=== PATIENT | male | born 1990 | race African-American/Black ===

== ENCOUNTER 2025-08-18 13:21 | Emergency (ER) | payer OTHER, SELFPAY ==
--- NOTE | 2025-08-18 | DI.CT.S_ITS ---
PROCEDURE: CT CHEST WO CON INDICATIONS: trauma TECHNIQUE: Noncontrast 5 mm thick sections acquired from the pulmonary apices to the posterior costophrenic angles. 1 mm lung window, 5 mm thick coronal and sagittal and 7 mm axial MIP reformats were then acquired. For radiation dose reduction, the following was used: automated exposure control, adjustment of mA and/or kV according to patient size. COMPARISON: None. FINDINGS: Image quality: Diagnostic. Lower Neck: No enlarged lymph nodes. Thyroid: No thyroid nodules which require sonographic follow up, per consensus guidelines. Axillae: No enlarged lymph nodes. Chest Wall: Moderate gynecomastia. Bones: Unremarkable. Lungs and Pleura: No pneumothorax or pleural effusions. No consolidation or suspicious nodules. Heart: Heart size is normal. No pericardial effusion. Thoracic Vessels: The aorta and pulmonary arteries demonstrate normal size. Mediastinum and Jessica: No enlarged lymph nodes. Esophagus: No wall thickening. Small hiatal hernia. Upper Abdomen: Visualized upper abdomen solid organs and bowel loops appear normal. IMPRESSION: No acute abnormality. Dictated by: Heath Simeon M.D. on 08/18/2025 at 14:38 Approved by: Heath Simeon M.D. on 08/18/2025 at 14:40
[2025-08-18 13:21] VITALS: BP 143/83; PULSE 62; RESP 11; TEMP 36.8; O2SAT 97; BMI 28.7
--- NOTE | 2025-08-18 13:33 | DI.CT.S_ITS ---
PROCEDURE: CT CERVICAL SPINE WO CON INDICATIONS: hit by metal juanis ACROSS LOWER BACK AND QUESTIONABLY NECK TECHNIQUE: Noncontrast 3 mm thick sections acquired from the skull base to the T4 level. Sagittal and coronal reformats were then constructed. For radiation dose reduction, the following was used: automated exposure control, adjustment of mA and/or kV according to patient size. COMPARISON: None. FINDINGS: Image quality: Excellent. Bones: No fractures or dislocations. Visualized superior ribs are intact. Soft tissues: Prevertebral soft tissues are normal in thickness. No paravertebral hematomas. No apical pneumothoraces. IMPRESSION: No displaced fracture or traumatic subluxation. Dictated by: Charli Prince M.D. on 08/18/2025 at 14:11 Approved by: Charli Prince M.D. on 08/18/2025 at 14:20
--- NOTE | 2025-08-18 13:36 | DI.CT.S_ITS ---
PROCEDURE: CT LUMBAR SPINE WO CON INDICATIONS: LOWER THORACOLUMBARPAIN AFTER HIT WITH ADRIAN. TECHNIQUE: Noncontrast 3 mm thick sections acquired from the T12 level to the sacrum. Sagittal and coronal reformats were constructed. For radiation dose reduction, the following was used: automated exposure control. COMPARISON: None. FINDINGS: Image quality: Excellent. Bones: There is normal bony alignment. No acute vertebral body compression fractures. No suspicious lytic or blastic bony lesions. No pars defects. Soft tissues: No retroperitoneal masses or hematomas. Visualized aorta is normal in caliber. IMPRESSION: No displaced fracture. Dictated by: Heath Simeon M.D. on 08/18/2025 at 14:36 Approved by: Heath Simeon M.D. on 08/18/2025 at 14:38
[2025-08-18 13:44] LABS: Add Manual Diff / Slide Review NO; Hematocrit 43.0 % (41-53); Hemoglobin 14.2 g/dL (13.5-17.5); Lymphocytes Absolute Auto 1600 /uL (1100-4500); Mean Corpuscular HGB Conc 33.1 % (30-36); Mean Corpuscular Hemoglobin 26.6 PG (26-34); Mean Corpuscular Volume 80.4 fL (80-100); Platelet Count 251 X10^3/uL (150-400)
[2025-08-18 13:49] LABS: Alanine Aminotransferase 59 IU/L (<50); Albumin 4.4 g/dL (3.5-5.0); Albumin Globulin Ratio 1.3 (1.0-2.8); Alkaline Phosphatase 103 U/L (38-126); Blood Urea Nitrogen 19 mg/dL (9-20); Calcium 8.8 mg/dL (8.4-10.2); Carbon Dioxide 26 mmol/L (22-32); Chloride 104 mmol/L (98-107); Estimated Glomerular Filt Rate > 60 mL/min (>60); Globulin 3.5 g/dL (1.7-4.1); Glucose 96 mg/dL (70-99); HEMOLYSIS < 15 (0-50); Lipase 81 U/L (23-300); Potassium 4.1 mmol/L (3.4-5.1); Sodium 138 mmol/L (137-145); Total Protein 7.9 g/dL (6.3-8.2)
--- NOTE | 2025-08-18 14:14 | PC.NURSE ---
Assumed care of patient
--- NOTE | 2025-08-18 14:17 | PC.NURSE ---
Pt on phone with mother. Pt's co-workers with him at bedside. Pt aox4. Pt on monitor. Denies needing anything at this time
[2025-08-18 14:30] VITALS: PULSE 76; RESP 22; O2SAT 97
[2025-08-18 14:31] VITALS: BP 134/79; PULSE 61; RESP 16; O2SAT 97
[2025-08-18 15:00] VITALS: PULSE 66; RESP 15; O2SAT 98
[2025-08-18 15:11] LABS: Troponin I < 0.012 ng/mL (0.01-0.034)
[2025-08-18 15:30] VITALS: PULSE 68; RESP 16; O2SAT 98
--- NOTE | 2025-08-18 21:39 | ED.BACK ---
HPI - Back Pain/Injury General Chief Complaint: Trauma Stated Complaint: injury from piece of metal from 10 feet above Time Seen by Provider: 08/18/25 13:33 Source: patient and EMS History of Present Illness HPI Narrative: This 34 yo male presents with moderately severe low back pain in lower thoracic /upper lumbar region after hit with metal juanis falling from 10 feet above on his back while he was in a sitting position. Did not hav e LOC and did not hit head but feels some questionable posterior neck discomfort although in rigid collar. denies any shortness of breath or pain on deep breath. Denies injury to extremities. Patient is a nonsmoker. Related Data Allergies Allergy/AdvReac Type Severity Reaction Status Date / Time No Known Drug Allergies Allergy Verified 08/18/25 13:35 Review of Systems Review of Systems ROS Unobtainable: All systems reviewed & are unremarkable except as noted in HPI and below Constitutional Comments: Malaise secondary to lower back pain in thoracolumbar region after hit with heavy metal juanis at work while sitting. Eyes Eyes: Reports system reviewed and no additional complaints, except as documented ENT Ears, Nose, Mouth, and Throat: Reports system reviewed and no additional complaints, except as documented Cardiovascular Cardiovascular: Reports system reviewed and no additional complaints, except as documented Respiratory Respiratory: Reports system reviewed and no additional complaints, except as documented Gastrointestinal Gastrointestinal: Reports system reviewed and no additional complaints, except as documented Genitourinary Genitourinary: Reports system reviewed and no additional complaints, except as documented Musculoskeletal Comments: Pain thoracolumbar region after hit with metal juanis at work while sitting. Some posterior neck pain too. No specific rib tenderness and no pain on deep breath. Neurologic Neurologic: Reports system reviewed and no additional complaints, except as documented Psychiatric Psychiatric: Reports system reviewed and no additional complaints, except as documented Patient History Smoking Status: Never smoker Exam Initial Vital Signs Initial Vital Signs: Vital Signs Temperature 98.3 F 08/18/25 13:21 Pulse Rate 62 08/18/25 13:21 Respiratory Rate 11 L 08/18/25 13:21 Blood Pressure 143/83 H 08/18/25 13:21 Pulse Oximetry 97 08/18/25 13:21 Oxygen Delivery Method Room Air 08/18/25 13:21 Const General: cooperative and healthy appearing Orientation: Orientation (oriented times 3 ) HENMT Head: normal to inspection and atraumatic Eyes General: Yes appearance normal, both eyes and all related structures Pupils: PERRL EOM: EOM intact bilaterally Neck Neck: normal visual inspection and full ROM (not tested before CT) Chest Chest: normal inspection of the chest Resp Effort & Inspection: normal respiratory effort Auscultation: clear to auscultation bilaterally Cardio Rate: regular rate Rhythm: regular rhythm GI Inspection: normal to inspection Other: Nontender, adequate BS Other: No suprapubic tenderness Back/Spine/Pelvis Other: Slight mid-cervical tenderness, Rom not attempted prior to CT. palpable lower thoracolumbar tenderness of moderate degree, decreased ROM. No pelvic girdle tenderness. No extremity tenderness and NROM. Neuro General: patient alert, patient oriented x3, moves all extremities, normal light touch, pain and propioception and CN's II-XI intact bilaterally Cognition: normal cognition Speech: speech normal Course Orders Ordered: ED Orders 08/18/25 13:25 CBC Auto Diff [Complete Blood Count AUTO DIFF] Stat CMP [Comprehensive Metabolic Panel] Stat Lipase Stat Troponin I Stat 08/18/25 13:33 CT cervical spine wo con Stat 08/18/25 13:36 CT lumbar spine wo con Stat Vital Signs Vital signs: Vital Signs - 8 hr 08/18/25 14:30 08/18/25 14:31 08/18/25 15:00 Pulse Rate 76 61 66 Respiratory Rate 22 16 15 Blood Pressure 134/79 Pulse Oximetry 97 97 98 Oxygen Delivery Method Room Air 08/18/25 15:30 08/18/25 15:51 Pulse Rate 68 Respiratory Rate 16 Blood Pressure Pulse Oximetry 98 Oxygen Delivery Method Room Air MDM - Back Pain/Injury Differential Diagnosis Differential diagnosis: Likely lumbar radiculopathy, sciatica, strain of lumbar region, thoracic back pain and other (kidney contusion ) Lab Data Attestation: I reviewed the patient's lab results. 08/18/25 13:25 08/18/25 13:25 Labs: Lab Results 08/18/25 Range/Units 13:25 WBC 4.1 L (4.5-11.0) X10^3/uL RBC 5.34 (4.5-5.9) X10^6/uL Hgb 14.2 (13.5-17.5) g/dL Hct 43.0 (41-53) % MCV 80.4 (80-100) fL MCH 26.6 (26-34) PG MCHC 33.1 (30-36) % RDW 13.8 (11.6-14.8) % Plt Count 251 (150-400) X10^3/uL Neut % (Auto) 47.0 L (50-75) % Lymph % (Auto) 39.4 (25-40) % [place] % (Auto) 8.7 (3-14) % Eos % (Auto) 3.0 (2-4) % Baso % (Auto) 1.9 (0-2) % Neut # (Auto) 1900 (8660-3581) /uL Lymph # (Auto) 1600 (0380-9143) /uL [place] # (Auto) 400 (0-900) /uL Eos # (Auto) 100 (0-450) /uL Baso # (Auto) 100 (0-100) /uL Sodium 138 (137-145) mmol/L Potassium 4.1 (3.4-5.1) mmol/L Chloride 104 (98-107) mmol/L Carbon Dioxide 26 (22-32) mmol/L BUN 19 (9-20) mg/dL Creatinine 1.06 (0.66-1.25) mg/dL Estimated GFR > 60 (>60) mL/min BUN/Creatinine Ratio 17.9 (6-22) Glucose 96 (70-99) mg/dL Calcium 8.8 (8.4-10.2) mg/dL Total Bilirubin 0.6 (0.2-1.3) mg/dL AST 47 (17-59) IU/L ALT 59 H (<50) IU/L Alkaline Phosphatase 103 (38-126) U/L Troponin I < 0.012 (0.01-0.034) ng/mL Total Protein 7.9 (6.3-8.2) g/dL Albumin 4.4 (3.5-5.0) g/dL Globulin 3.5 (1.7-4.1) g/dL Albumin/Globulin Ratio 1.3 (1.0-2.8) Lipase 81 (23-300) U/L MDM Narrative Medical decision making narrative: This 34 yo male presents after being hit by a heavy metal juanis from 10 feet. overhis thoracolumbar back. No LOC. Some neck tenderness. Lab was non-consequential CT cervical, chest , thoracolumbar all negative for fracture , hematoma, pneumothorax . Suspect patient hasa thoracolumbar contusion and cervical strain. Recommended ibuprofen and Flexeril prn but patietn wanted no prescriptions and will buy oTC meds. Will use ice to back prn. No heavy lifting more than 10 lbs for 2 weeks. Follow-up 1 week with occupational clinic. Discharge Plan Departure Patient Disposition: Home Clinical Impression: Contusion of multiple sites Activity Restrictions/Additional Instructions: Home, light activity , no lifting more than 10 lbs next 2 weeks. Follow-up 5 days if no better. No work tonight. Stand Alone Forms: Patient Portal/API
== END 2025-08-18 15:52 | disposition home or self-care (01) ==
PROVIDERS: Emergency Provider Emergency Medicine
DX: S20.229A Contusion of unspecified back wall of thorax, initial encounter (principal); S16.1XXA Strain of muscle, fascia and tendon at neck level, initial encounter; W20.8XXA Other cause of strike by thrown, projected or falling object, initial encounter; Y99.0 Civilian activity done for income or pay
CPT/HCPCS: 71250; 72125; 72131; 80053; 83690; 84484; 85025; 99283; 99284